=== PATIENT | male | born 1940 | race Two or more races ===

== ENCOUNTER → 2018-04-24 | Outpatient (CLI) | payer MEDICARE, OTHER | END | disposition home or self-care (01) | LOC: RADMN 09:06 | PROVIDERS: ATTEND Family Medicine | DX: K40.90 Unilateral inguinal hernia, without obstruction or gangrene, not specified as recurrent (principal); I70.90 Unspecified atherosclerosis | CPT/HCPCS: 74176 ==

== ENCOUNTER → 2018-10-21 | Outpatient (CLI) | payer MEDICARE, OTHER | END | disposition home or self-care (01) | LOC: RADPV 14:56 | PROVIDERS: ATTEND Family Medicine | DX: J45.909 Unspecified asthma, uncomplicated (principal) ==

== ENCOUNTER → 2018-11-08 | Outpatient (CLI) | payer MEDICARE, OTHER ==
[~2018-11-08] VITALS: Ht 167.6 cm; Wt 78.0 kg
[~2018-11-08] MED LIST: AMLO-511 PO; CHOL50004 PO; CYAN1TAB44 PO; FINA5TAB41 PO; GABA-531 PO; IPRA3AMP24 IH; PRED10 PO; TAMS-1 PO
[2018-11-08 13:40] VITALS: BP 125/67
== END | disposition home or self-care (01) ==
LOC: SRCNTR 13:31
PROVIDERS: ATTEND Internal Medicine Critical Care Medicine
DX: J98.11 Atelectasis (principal); I10 Essential (primary) hypertension; J45.909 Unspecified asthma, uncomplicated; R05 Cough
CPT/HCPCS: G0463

== ENCOUNTER → 2018-12-27 | Outpatient (CLI) | payer MEDICARE, OTHER ==
[~2018-12-27] MED LIST changes: -AMLO-511 PO; +AZIT500T4 PO; -GABA-531 PO; -PRED10 PO; +PRED10TA3 PO; +PRED20TA3 PO
== END | disposition home or self-care (01) ==
LOC: RADMN 11:14
PROVIDERS: ATTEND Internal Medicine Critical Care Medicine
DX: J98.11 Atelectasis (principal)
CPT/HCPCS: 71250

== ENCOUNTER → 2019-01-07 | Outpatient (CLI) | payer MEDICARE, OTHER | END | disposition home or self-care (01) | LOC: RESP 09:18 | PROVIDERS: ATTEND Internal Medicine Critical Care Medicine | DX: J44.9 Chronic obstructive pulmonary disease, unspecified (principal) | CPT/HCPCS: 94010; 94726; 94727; 94729 ==

== ENCOUNTER 2019-02-03 13:55 | Emergency (ER) | payer MEDICARE, OTHER ==
[~2019-02-03] VITALS: Ht 170.2 cm; Wt 75.5 kg
[2019-02-03 14:00] VITALS: BP 120/73
== END 2019-02-03 17:14 | disposition left against medical advice (07) ==
LOC: EMS 13:59
DX: M79.661 Pain in right lower leg (principal); Z53.21 Procedure and treatment not carried out due to patient leaving prior to being seen by health care provider